=== PATIENT | female | born 1975 | race American Indian/Alaskan Native ===

== ENCOUNTER 2018-12-12 10:48 | Emergency (ER) | payer MEDICAID ==
[2018-12-12 13:13] LABS: Basophils # (Auto) 0.1 K/mm3 (0.0-0.1); Basophils % (Auto) 0.9 % (0.0-1.8); Eosinophils # (Auto) 0.4 K/mm3 (0.0-0.4); Eosinophils % (Auto) 4.4 % (0.0-4.3); Hematocrit 26.7 % (30.3-42.9); Hemoglobin 8.1 gm/dl (10.1-14.3); Lymphocytes # (Auto) 2.5 K/mm3 (1.2-5.4); Lymphocytes % (Auto) 26.8 % (13.4-35.0); Mean Corpuscular HGB Conc 30 % (30-34); Monocytes # (Auto) 0.7 K/mm3 (0.0-0.8); Monocytes % (Auto) 7.3 % (0.0-7.3); Platelet Count 267 K/mm3 (140-440); Red Blood Count 4.26 M/mm3 (3.65-5.03)
[2018-12-12 13:14] LABS: Mean Corpuscular Volume 63 fl (79-97)
[2018-12-12 13:49] LABS: BUN/Creatinine Ratio 12; Blood Urea Nitrogen 7 mg/dL (7-17); Calcium 9.1 mg/dL (8.4-10.2); Hemolysis Index 3
--- NOTE | 2018-12-12 14:12 | Emergency Department Report ---
ED Psych HPI - General Chief Complaint: Psych Stated Complaint: SI THOUGHTS/EVAL Time Seen by Provider: 12/12/18 14:01 Source: patient Mode of arrival: Ambulatory Limitations: No Limitations - History of Present Illness Initial Comments: 43-year-old female with a past medical history of migraines, hypertension, and anemia presents to the hospital for suicidal ideation since last night. Patient states she has history of suicidal attempt about 4 years ago when she slit her wrists and tried to overdose. She did not seek medical treatment at that time. Patient a states she's been expressing to her that she is depressed. Patient states she has 2 adult children and one child is in high school and states that taking care of her children is all she has known since the age of 18. Patient states she is anxious all the time and having trouble processing her thoughts. She is having thoughts about walking into traffic. 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 MD Complaint: suicidal ideation - Related Data Home Medications Medication Instructions Recorded Confirmed Last Taken No Known Home Medications [No 12/12/18 12/12/18 Unknown Reported Home Medications] Allergies Allergy/AdvReac Type Severity Reaction Status Date / Time No Known Allergies Allergy Unverified 07/22/13 17:12 ED Review of Systems ROS: Stated complaint: SI THOUGHTS/EVAL Other details as noted in HPI Comment: All other systems reviewed and negative ED Past Medical Hx - Past Medical History Previous Medical History?: Yes Hx Hypertension: Yes Hx Headaches / Migraines: Yes Additional medical history: anemia - Surgical History Past Surgical History?: Yes Additional Surgical History: - Social History Smoking Status: Never Smoker Substance Use Type: None - Medications Home Medications: Home Medications Medication Instructions Recorded Confirmed Last Taken Type No Known Home Medications [No 12/12/18 12/12/18 Unknown History Reported Home Medications] ED Physical Exam - General Limitations: No Limitations - Other Other exam information: Gen.: No acute distress Head: Atraumatic Eyes: Normal appearance EENT: Moist mucous membranes Neck: Normal appearance, no posterior midline tenderness, no meningismus Chest: Clear to auscultation bilaterally Cardiovascular: Regular rate and rhythm Abdomen: Normal appearance, soft, nontender, no rebound or guarding, normal bowel sounds Back: Normal appearance, nontender Extremity: Full range of motion, normal appearance Neuro: Alert, clear speech, no focal motor or sensory deficit Psychiatric: Tearful Skin: No rash ED Course Vital Signs 12/12/18 12/12/18 12/12/18 10:54 13:00 15:34 Temperature 98.4 F 98.8 F Pulse Rate 83 95 H Respiratory 18 20 Rate Blood Pressure 136/78 116/76 [Left] O2 Sat by Pulse 99 100 100 Oximetry 12/12/18 12/13/18 12/13/18 19:15 00:03 00:45 Temperature 98.3 F Pulse Rate 84 Respiratory 18 16 16 Rate Blood Pressure 123/80 [Left] O2 Sat by Pulse 99 Oximetry 12/13/18 12/13/18 12/13/18 01:00 08:00 08:06 Temperature 98.3 F 98.1 F Pulse Rate 66 74 Respiratory 20 16 20 Rate Blood Pressure 106/56 111/68 [Left] O2 Sat by Pulse 100 100 Oximetry - Reevaluation(s) Reevaluation #1: 12/12/18 14:11 I explained to pt that she is a 1013 due to SI with plan. Pt is beligerant. stating she is not willing to stay in the hospital. I went to inform nursing staff and pt gathered her things and walked out the department. Security informed. Reevaluation #2: 12/13/18 12:03 Patient was assessed by mental health today and was deemed not to be suicidal. Recommend 1013 be rescinded. No meds advised at this time and patient preferred outpatient therapy. ED Medical Decision Making - Lab Data Result diagrams: 12/12/18 12:25 12/12/18 12:25 Lab Results 12/12/18 12/12/18 12/12/18 Range/Units 12:25 12:25 12:25 WBC (4.5-11.0) K/mm3 RBC (3.65-5.03) M/mm3 Hgb (10.1-14.3) gm/dl Hct (30.3-42.9) % MCV (79-97) fl MCH (28-32) pg MCHC (30-34) % RDW (13.2-15.2) % Plt Count (140-440) K/mm3 Lymph % (Auto) (13.4-35.0) % [place] % (Auto) (0.0-7.3) % Eos % (Auto) (0.0-4.3) % Baso % (Auto) (0.0-1.8) % Lymph # (1.2-5.4) K/mm3 [place] # (0.0-0.8) K/mm3 Eos # (0.0-0.4) K/mm3 Baso # (0.0-0.1) K/mm3 Seg Neutrophils % (40.0-70.0) % Seg Neutrophils # (1.8-7.7) K/mm3 Sodium 143 (137-145) mmol/L Potassium 3.8 (3.6-5.0) mmol/L Chloride 105.1 (98-107) mmol/L Carbon Dioxide 18 L (22-30) mmol/L Anion Gap 24 mmol/L BUN 7 (7-17) mg/dL Creatinine 0.6 L (0.7-1.2) mg/dL Estimated GFR > 60 ml/min BUN/Creatinine Ratio 12 % Glucose 102 H (65-100) mg/dL Calcium 9.1 (8.4-10.2) mg/dL Urine Color (Yellow) Urine Turbidity (Clear) Urine pH (5.0-7.0) Ur Specific Reading (1.003-1.030) Urine Protein (Negative) mg/dL Urine Glucose (UA) (Negative) mg/dL Urine Ketones (Negative) mg/dL Urine Blood (Negative) Urine Nitrite (Negative) Urine Bilirubin (Negative) Urine Urobilinogen (<2.0) mg/dL Ur Leukocyte Esterase (Negative) Urine WBC (Auto) (0.0-6.0) /HPF Urine RBC (Auto) (0.0-6.0) /HPF U Epithel Cells (Auto) (0-13.0) /HPF Urine Bacteria (Auto) (Negative) /HPF Urine Mucus /HPF Urine HCG, Qual (Negative) Salicylates < 0.3 L (2.8-20.0) mg/dL Urine Opiates Screen Urine Methadone Screen Acetaminophen < 5.0 L (10.0-30.0) ug/mL Ur Barbiturates Screen Ur Phencyclidine Scrn Ur Amphetamines Screen U Benzodiazepines Scrn Urine Cocaine Screen U Marijuana (THC) Screen Drugs of Abuse Note Plasma/Serum Alcohol (0-0.07) % 12/12/18 12/12/1819 Range/Units 12:25 12:25 14:30 WBC 9.5 (4.5-11.0) K/mm3 RBC 4.26 (3.65-5.03) M/mm3 Hgb 8.1 L (10.1-14.3) gm/dl Hct 26.7 L (30.3-42.9) % MCV 63 L (79-97) fl MCH 19 L (28-32) pg MCHC 30 (30-34) % RDW 20.0 H (13.2-15.2) % Plt Count 267 (140-440) K/mm3 Lymph % (Auto) 26.8 (13.4-35.0) % [place] % (Auto) 7.3 (0.0-7.3) % Eos % (Auto) 4.4 H (0.0-4.3) % Baso % (Auto) 0.9 (0.0-1.8) % Lymph # 2.5 (1.2-5.4) K/mm3 [place] # 0.7 (0.0-0.8) K/mm3 Eos # 0.4 (0.0-0.4) K/mm3 Baso # 0.1 (0.0-0.1) K/mm3 Seg Neutrophils % 60.6 (40.0-70.0) % Seg Neutrophils # 5.7 (1.8-7.7) K/mm3 Sodium (137-145) mmol/L Potassium (3.6-5.0) mmol/L Chloride (98-107) mmol/L Carbon Dioxide (22-30) mmol/L Anion Gap mmol/L BUN (7-17) mg/dL Creatinine (0.7-1.2) mg/dL Estimated GFR ml/min BUN/Creatinine Ratio % Glucose (65-100) mg/dL Calcium (8.4-10.2) mg/dL Urine Color Yellow (Yellow) Urine Turbidity Slightly-cloudy (Clear) Urine pH 5.0 (5.0-7.0) Ur Specific Reading 1.025 (1.003-1.030) Urine Protein 30 mg/dl (Negative) mg/dL Urine Glucose (UA) Neg (Negative) mg/dL Urine Ketones 20 (Negative) mg/dL Urine Blood Sm (Negative) Urine Nitrite Neg (Negative) Urine Bilirubin Neg (Negative) Urine Urobilinogen < 2.0 (<2.0) mg/dL Ur Leukocyte Esterase Neg (Negative) Urine WBC (Auto) 1.0 (0.0-6.0) /HPF Urine RBC (Auto) 1.0 (0.0-6.0) /HPF U Epithel Cells (Auto) 2.0 (0-13.0) /HPF Urine Bacteria (Auto) 1+ (Negative) /HPF Urine Mucus 2+ /HPF Urine HCG, Qual (Negative) Salicylates (2.8-20.0) mg/dL Urine Opiates Screen Urine Methadone Screen Acetaminophen (10.0-30.0) ug/mL Ur Barbiturates Screen Ur Phencyclidine Scrn Ur Amphetamines Screen U Benzodiazepines Scrn Urine Cocaine Screen U Marijuana (THC) Screen Drugs of Abuse Note Plasma/Serum Alcohol < 0.01 (0-0.07) % 12/12/18 12/12/18 Range/Units 14:30 14:30 WBC (4.5-11.0) K/mm3 RBC (3.65-5.03) M/mm3 Hgb (10.1-14.3) gm/dl Hct (30.3-42.9) % MCV (79-97) fl MCH (28-32) pg MCHC (30-34) % RDW (13.2-15.2) % Plt Count (140-440) K/mm3 Lymph % (Auto) (13.4-35.0) % [place] % (Auto) (0.0-7.3) % Eos % (Auto) (0.0-4.3) % Baso % (Auto) (0.0-1.8) % Lymph # (1.2-5.4) K/mm3 [place] # (0.0-0.8) K/mm3 Eos # (0.0-0.4) K/mm3 Baso # (0.0-0.1) K/mm3 Seg Neutrophils % (40.0-70.0) % Seg Neutrophils # (1.8-7.7) K/mm3 Sodium (137-145) mmol/L Potassium (3.6-5.0) mmol/L Chloride (98-107) mmol/L Carbon Dioxide (22-30) mmol/L Anion Gap mmol/L BUN (7-17) mg/dL Creatinine (0.7-1.2) mg/dL Estimated GFR ml/min BUN/Creatinine Ratio % Glucose (65-100) mg/dL Calcium (8.4-10.2) mg/dL Urine Color (Yellow) Urine Turbidity (Clear) Urine pH (5.0-7.0) Ur Specific Reading (1.003-1.030) Urine Protein (Negative) mg/dL Urine Glucose (UA) (Negative) mg/dL Urine Ketones (Negative) mg/dL Urine Blood (Negative) Urine Nitrite (Negative) Urine Bilirubin (Negative) Urine Urobilinogen (<2.0) mg/dL Ur Leukocyte Esterase (Negative) Urine WBC (Auto) (0.0-6.0) /HPF Urine RBC (Auto) (0.0-6.0) /HPF U Epithel Cells (Auto) (0-13.0) /HPF Urine Bacteria (Auto) (Negative) /HPF Urine Mucus /HPF Urine HCG, Qual Negative (Negative) Salicylates (2.8-20.0) mg/dL Urine Opiates Screen Presumptive negative Urine Methadone Screen Presumptive negative Acetaminophen (10.0-30.0) ug/mL Ur Barbiturates Screen Presumptive negative Ur Phencyclidine Scrn Presumptive negative Ur Amphetamines Screen Presumptive negative U Benzodiazepines Scrn Presumptive negative Urine Cocaine Screen Presumptive negative U Marijuana (THC) Screen Presumptive positive Drugs of Abuse Note Disclamer Plasma/Serum Alcohol (0-0.07) % - Medical Decision Making Patient expresses symptoms of depression and anxiety as well as suicidal ideation with multiple plans. I tried to explain the patient why she is on a 1013. Patient is resistant and angry about the fact that she cannot freely leave the department. I tried to inform her that we are concerned about her personal safety given her thoughts of suicide with plan and we need to have her seen by a mental health evaluated and psychiatrist prior to psychiatric clearance. Labs and urine reviewed - Differential Diagnosis depression, psychosis, suicidal ideation, anxiety Critical Care Time: No Critical care attestation.: If time is entered above; I have spent that time in minutes in the direct care of this critically ill patient, excluding procedure time. ED Disposition Clinical Impression: Suicidal ideation, Anxiety, Depression, Medical clearance for psychiatric admission Disposition: [id number]/TX-65 PSY HOSP/PSY UNIT Is pt being admited?: No Does the pt Need Aspirin: No Condition: Stable Instructions: Anxiety (ED), Depression (ED), Suicide Prevention for Adults (ED) Additional Instructions: Follow-up with your doctor or with the doctor/clinic provided. Return if symptoms worsen as indicated by your discharge instructions. Referrals: PRIMARY CARE, [[facility] Care Provider[facility] Time of Disposition: 15:50
[2018-12-12 15:00] LABS: HCG Qualitative,Urine Negative (Negative)
[2018-12-12 15:03] LABS: Amphetamine Screen,Urine PRESUMPTIVE NEGATIVE; Benzodiazepines Screen,Urine PRESUMPTIVE NEGATIVE; Cocaine Screen,Urine PRESUMPTIVE NEGATIVE; Methadone Screen,Urine PRESUMPTIVE NEGATIVE; Opiate Screen,Urine PRESUMPTIVE NEGATIVE
[2018-12-12 15:10] LABS: Bacteria,Urine 1+ /HPF (Negative); Bilirubin,Urine NEG (Negative); Blood,Urine SM (Negative); Color,Urine Yellow (Yellow); Mucus,Urine 2+ /HPF; Urobilinogen,Urine < 2.0 mg/dL (<2.0)
[2018-12-12 15:17] LABS: Cannabinoid Screen,Urine PRESUMPTIVE POSITIVE
[2018-12-12] MEDS ORDERED: IBUPROFEN PO ONE (23:59)
[2018-12-13] MEDS ORDERED: IBUPROFEN ONE ×2 (00:02→09:58)
[2018-12-13 09:40] VITALS: BP 111/68
--- NOTE | 2018-12-13 11:12 | Consultation ---
History of Present Illness - Reason for Consult Consult date: 12/13/18 Reason for consult: Mental Health Evaluation Requesting physician: CATIE SYLVESTER - Chief Complaint Chief complaint: "I was stressed" - History of Present Psychiatric Illness 43 y.o. AA female who presented to the ER for SI's. The patient was calm and cooperative during the assessment. She stated that she was "stressed" that her was unemployed along with being from him because they lost their residence several months ago. She stated that she was answering questions about her mental health during triage and denies saying that she was suicidal. She stated that she came to the ER to talk with a therapist about her crisis. Per collateral information from the patient's who was at the bedside, Mr Lucius Henderson, he stated that his wasn't suicidal "at all" yesterday. He confirmed that she was "stressed." He denies any previous unsafe behavior from the patient the past several months. She rate her d depression/anxiety 1/10, with 10 being the worse. The patient denies SI/HI's and AVH's. She denies erratic sleep and a poor appetite. She denies alcohol consumption (etoh), but acknowledged marijuana use. Medications and Allergies Allergies Allergy/AdvReac Type Severity Reaction Status Date / Time No Known Allergies Allergy Unverified 07/22/13 17:12 Home Medications Medication Instructions Recorded Confirmed Last Taken Type No Known Home Medications [No 12/12/18 12/12/18 Unknown History Reported Home Medications] Past psychiatric history - Past Medical History Past Medical History: No medical history Past Surgical History: No surgical history - past Psychiatric treatment and history psychiatric treatment history: Hx of anxiety and suicide attempt 6 yrs ago per the patient. Denies a fam psy hx. - Social History Social history: lives with family Mental Status Exam - Vital signs Last Vital Signs Temp 98.1 F 12/13/18 08:00 Pulse 74 12/13/18 08:00 Resp 20 12/13/18 08:06 BP 111/68 12/13/18 08:00 Pulse Ox 100 12/13/18 08:00 - Exam Narrative exam: MSE: Appearance: calm, cooperative Behavior: regular eye contact Speech: regular rate and tone Mood: "okay" Affect: congruent to mood Thought Process: logical Thought Content: denies SI/HI's and AVH's Motor Activity: laying in bed Cognition: A/O x3 Insight: appropriate Judgment: appropriate Results Result Diagrams: 12/12/18 12:25 12/12/18 12:25 Abnormal lab results 12/12/18 12/12/18 12/12/18 Range/Units 12:25 12:25 12:25 Hgb (10.1-14.3) gm/dl Hct (30.3-42.9) % MCV (79-97) fl MCH (28-32) pg RDW (13.2-15.2) % Eos % (Auto) (0.0-4.3) % Carbon Dioxide 18 L (22-30) mmol/L Creatinine 0.6 L (0.7-1.2) mg/dL Glucose 102 H (65-100) mg/dL Salicylates < 0.3 L (2.8-20.0) mg/dL Acetaminophen < 5.0 L (10.0-30.0) ug/mL 12/12/18 Range/Units 12:25 Hgb 8.1 L (10.1-14.3) gm/dl Hct 26.7 L (30.3-42.9) % MCV 63 L (79-97) fl MCH 19 L (28-32) pg RDW 20.0 H (13.2-15.2) % Eos % (Auto) 4.4 H (0.0-4.3) % Carbon Dioxide (22-30) mmol/L Creatinine (0.7-1.2) mg/dL Glucose (65-100) mg/dL Salicylates (2.8-20.0) mg/dL Acetaminophen (10.0-30.0) ug/mL All other labs normal. Assessment and Plan Assessment and plan: Impression: hx of Depression/Anxiety. Cannabis Use DO. The patient was calm and cooperative during the assessment. The patient is no threat to self. DDx: Substance Induced Mood DO Recommendation/Plan: Rescind 1013. Discussed risks/benefits off SSRI's with the patient, she prefer talk therapy at this time. Discussed generalized coping skills with the patient, she verbalized understanding. Dispo: The patient can follow up with [facility] for outpatient psy services. Will staff with Dr Chivo Wiley.
== END 2018-12-13 11:36 | disposition home or self-care (01) ==
LOC: ED 10:48 → EEVIPCON 10:48 → ED 12-13 11:36
DX: F41.9 Anxiety disorder, unspecified (principal); F32.9 Major depressive disorder, single episode, unspecified; I10 Essential (primary) hypertension; G43.909 Migraine, unspecified, not intractable, without status migrainosus; Z86.2 Personal history of diseases of the blood and blood-forming organs and certain disorders involving the immune mechanism
CPT/HCPCS: 36415; 80048; 80307; 80320; 81001; 81025; 85025; 99284; G0480